=== PATIENT | male | born 1975 | race Caucasian/White ===

== ENCOUNTER 2018-05-31 14:59 | Emergency (ER) | payer SELFPAY ==
[2018-05-31 15:11] VITALS: BP 147/90; PULSE 70; RESP 16; TEMP 98; O2SAT 98
[2018-05-31] MEDS ORDERED: Bacitracin 500 Units/gm Oint Foilpak UD ONE (15:11)
[2018-05-31] MEDS ORDERED: Lidocaine 2% MPF (5 ml) Inj ONE (15:11)
--- NOTE | 2018-05-31 15:57 | C.PDOC ---
History Of Present Illness 43 yo male come in for evaluation of Right hand laceration sustained [employer] at home. Ptsts, " accidentally cut with metal spatula". Noted wound bleeding. Otherwise, denies weakness, deformity, sensory or vascular deficits to Right hand. Ambulate to Ed for evaluation, not in any apparent distress. Time Seen by Provider: 05/31/18 15:12 Chief Complaint (Nursing): Abnormal Skin Integrity History Per: Patient Onset/Duration Of Symptoms: Sudden Onset Past Medical History Reviewed: Historical Data, Nursing Documentation, Vital Signs Vital Signs: Last Vital Signs Temp 98 F 05/31/18 15:09 Pulse 70 05/31/18 15:09 Resp 16 05/31/18 15:09 BP 147/90 05/31/18 15:09 Pulse Ox 98 05/31/18 15:09 - Medical History PMH: No Chronic Diseases Surgical History: No Surg Hx - [facility] Procedures TETANUS TOXOID ADMINIST (05/18/13) Family History: States: No Known Family Hx - Social History Hx Tobacco Use: No Hx Alcohol Use: Yes Hx Substance Use: No - Immunization History Hx Tetanus Toxoid Vaccination: Yes (2 yrs ago) Hx Influenza Vaccination: No Hx Pneumococcal Vaccination: No Review Of Systems Except As Marked, All Systems Reviewed And Found Negative. Constitutional: Negative for: Fever, Chills Musculoskeletal: Positive for: Hand Pain Skin: Positive for: Lesions Neurological: Negative for: Weakness, Numbness Physical Exam - Physical Exam Appears: Well, Non-toxic, No Acute Distress Skin: Normal Color, Warm, Other (4cm linear cutaneous laceration dorsal aspect Right hand in web between 1-2 MCB. NO edema, no erythema, no wound FB, mild bloody oozing noted.) Extremity: Normal ROM (Right hand, no neurovascular deficits.), Tenderness ( dorsal aspect Right hand overlying laceration), Capillary Refill (less than 2sec to Right hand), No Deformity, No Swelling ED Course And Treatment O2 Sat by Pulse Oximetry: 98 Pulse Ox Interpretation: Normal Progress Note: On re-eval, pt is afebrile, hemodynamicaly stable. NOn-toxic. Right hand: laceration closed with sutures without difficulty. FAROM, no neurovascular deficits. tetanus is UTD. Pt advised on wound care. ref. to [facility]/ U with PMD in 2 days for wound care. return to ED at any time if any worsening or new changes. Laceration - Laceration Repair Right hand Wound Length (In cm): 4cm Description Of Wound: Linear Anesthesia: Lidocaine 2% Wound Examination: Irrigated With Saline, No FB With Wound Exploration, No Tendon Injury With Wound Exploration Wound Closure: Suture (#6) Suture Technique And Material Used: Interrupted, Nylon (4-0) Wound Complexity: Simple Disposition Counseled Patient/Family Regarding: Diagnosis, Need For Followup - Disposition Referrals: [facility] [Outside] Disposition: HOME/ ROUTINE Disposition Time: 15:57 Condition: STABLE Additional Instructions: Keep wound dry for 1 week Ibuprofen as need for pain Clean wound daily with Peroxide, apply Bacitracin topically Suture removal in 7-10 days return to [facility] at any time if any sign of infection or any other new changes. Instructions: Laceration Repair With Stitches (DC) - Clinical Impression Clinical Impression: Laceration of hand
== END 2018-05-31 16:06 | disposition home or self-care (01) ==
LOC: C.ER 14:59
DX: S61.411A Laceration without foreign body of right hand, initial encounter (principal); W45.8XXA Other foreign body or object entering through skin, initial encounter; Y92.009 Unspecified place in unspecified non-institutional (private) residence as the place of occurrence of the external cause

== ENCOUNTER 2018-06-10 14:29 | Emergency (ER) | payer OTHER ==
[2018-06-10 15:01] VITALS: BP 122/80; PULSE 72; RESP 18; TEMP 98.4; O2SAT 98
--- NOTE | 2018-06-10 16:04 | C.PDOC ---
History Of Present Illness 43 y/o male presents to ED for suture removal on right hand placed on 05/31/18. Patient denies signs of infection, drainage, fever, new injury or any other complaints at this time. Time Seen by Provider: 06/10/18 15:05 Chief Complaint (Nursing): Abnormal Skin Integrity History Per: Patient History/Exam Limitations: no limitations Onset/Duration Of Symptoms: Days Current Symptoms Are (Timing): Still Present Past Medical History Reviewed: Historical Data, Nursing Documentation, Vital Signs Vital Signs: Last Vital Signs Temp 98.4 F 06/10/18 14:59 Pulse 72 06/10/18 14:59 Resp 18 06/10/18 14:59 BP 122/80 06/10/18 14:59 Pulse Ox 98 06/10/18 16:04 - Medical History PMH: No Chronic Diseases Surgical History: Back Surgery - [facility] Procedures TETANUS TOXOID ADMINIST (05/18/13) Family History: States: No Known Family Hx - Social History Hx Tobacco Use: No Hx Alcohol Use: Yes Hx Substance Use: No - Immunization History Hx Tetanus Toxoid Vaccination: Yes Hx Influenza Vaccination: No Hx Pneumococcal Vaccination: No Review Of Systems Constitutional: Negative for: Fever, Chills Musculoskeletal: Positive for: Hand Pain Skin: Positive for: Other (laceration to right hand). Negative for: Rash, Bruising Neurological: Negative for: Weakness, Numbness Physical Exam - Physical Exam Appears: Non-toxic, No Acute Distress Skin: Warm, Dry, No Rash, No Ecchymosis, Other (3cm laceration to dorsum of right hand proximal to thumb. sutures intact. No drainage or signs of infection. Mild dehiscence to wound closest to thumb) Head: Atraumatic, Normacephalic Eye(s): bilateral: Normal Inspection Oral Mucosa: Moist Extremity: Capillary Refill (<2 seconds), No Deformity, No Swelling Pulses: Right Radial: Normal Neurological/Psych: Oriented x3, Normal Speech, Normal Motor, Normal Sensation ED Course And Treatment O2 Sat by Pulse Oximetry: 98 (RA) Pulse Ox Interpretation: Normal Medical Decision Making Medical Decision Makin sutures removed, patient tolerated well and steri strips applied. Disposition - Disposition Disposition: HOME/ ROUTINE Disposition Time: 16:03 Condition: GOOD Additional Instructions: Steri strips will fall off on their own. Your skin is still healing, so no strenous activitiy. Tylenol or Motrin for pain if needed Forms: [facility] (Eth[place]ian), General Discharge Instructions - Clinical Impression Clinical Impression: Visit for suture removal - PA / LASERIST / Resident Statement MD/DO has reviewed & agrees with the documentation as recorded. - Scribe Statement The provider has reviewed the documentation as recorded by the Padminiibwilfrido Bhatt All medical record entries made by the Padminiibwilfrido were at my direction and personally dictated by me. I have reviewed the chart and agree that the record accurately reflects my personal performance of the history, physical exam, medical decision making, and the department course for this patient. I have also personally directed, reviewed, and agree with the discharge instructions and disposition.
== END 2018-06-10 16:08 | disposition home or self-care (01) ==
LOC: C.ER 14:29
DX: Z48.02 Encounter for removal of sutures (principal)